=== PATIENT | female | born 2000 | race Caucasian/White ===

== ENCOUNTER 2021-07-19 12:16 | Emergency (ER) | payer MEDICAID, SELFPAY ==
[2021-07-19 13:20] VITALS: BP 125/86; PULSE 78; TEMP 36.9; O2SAT 100; BMI 22.6
--- NOTE | 2021-07-19 15:01 | ED.EAR ---
HPI - Ear Problem General Chief complaint: Ear Problems Stated complaint: ear problem Time Seen by Provider: 07/19/21 15:00 History of Present Illness HPI Narrative: Patient complains of right ear foreign body, last night she felt an insect buzzing in her ear she could to clean it out with water and peroxide and the insect. The buzzing but she still had the feeling of something stuck in her ear Related Data Allergies Allergy/AdvReac Type Severity Reaction Status Date / Time No Known Allergies Allergy Unverified 08/12/20 18:30 Review of Systems Review of Systems: Positive for ear foreign body Negatives are no fever no chills no headache no neck pain no shortness of breath Physical Exam Vital Signs: Vital Signs: Last Vital Signs Temp 98.5 F 07/19/21 13:20 Pulse 78 07/19/21 13:20 BP 125/86 07/19/21 13:20 Pulse Ox 100 07/19/21 13:20 Body Mass Index 22.6 Head is normocephalic atraumatic Left ear is normal with normal tympanic membrane The right ear had small black piece is possibly insect pieces visible against the tympanic membrane which was otherwise intact with a normal color and canal was patent and normal in appearance The neck was supple Respiratory no distress Extremities full range of motion x4 Skin no rash Course Course Course Narrative: Small black pieces of insect were irrigated easily from right ear tympanic membrane remains intact and no other foreign body is seen Discharge Plan Discharge Clinical Impression: Ear foreign body Patient Disposition: Home, Self-Care Additional Instructions: Small pieces of insect were cleaned out After clean out there is no visible foreign body in the ear the tympanic membrane is intact there is no sign of any infection Your ear had no wax in it was easily visualized Interventions: ED Discharge Assessment Last Done: 07/19/21 15:03 Discharge Date/Time: 07/19/21 15:05
== END 2021-07-19 15:05 | disposition home or self-care (01) ==
PROVIDERS: Emergency Provider Emergency Medicine; PCP Pediatrics
DX: T16.1XXA Foreign body in right ear, initial encounter (principal); Y99.9 Unspecified external cause status
CPT/HCPCS: 99282; 99283; 99284

== ENCOUNTER 2021-09-26 12:00 | Outpatient (RCR) | payer MEDICAID, SELFPAY | END 2021-09-26 13:46 | disposition home or self-care (01) | LOC: HO.PT 12:00 | PROVIDERS: PCP General Practice; Visit Provider General Practice | DX: M22.2X1 Patellofemoral disorders, right knee (principal) | CPT/HCPCS: 97110; 97112; 97162; 97530 ==